=== PATIENT | female | born 1940 | race Caucasian/White ===

== ENCOUNTER → 2016-11-10 | Outpatient (CLI) | payer SELFPAY ==
[~2016-11-10] MED LIST: AMLODIPINE BESY10 MG PO; ASPIRIN PO; CALCIUM + D 6001 TA1 PO; CERTAGEN PO; CITRACAL200 MG PO; COZAAR100 MG; FISH OIL PO; HYDROCHLOROT PO; LOPRESSOR PO; LOPRESSOR100 MG PO; LOTREL 10/20 MG1 CAP PO; OMEPRAZOLE20 M1 PO; PROTONIX PO; ZOCOR PO
== END | disposition home or self-care (01) ==
LOC: CNIV 08:53
DX: M25.472 Effusion, left ankle (principal); M79.89 Other specified soft tissue disorders; L03.112 Cellulitis of left axilla

== ENCOUNTER → 2017-03-29 | Outpatient (CLI) | payer OTHER, MEDICARE ==
--- NOTE | ~2017-03-29 | MY29 ---
[facility] A Service [facility] RADIOLOGY TEXT RESULTS PATIENT: AMAYA ORDOÑEZ LOCATION: [facility] : 38 UNIT #: [id number] AGE: [address]: BRENT IBRAHIM APRN SEX: F ORDER DR: [id number] [facility] [address] [place], [place] [address] [id number] O MR#: [id number] #: [id number] NAME: AMAYA ORDOÑEZ : 1940 SEX: F STUDY DATE/TIME: 03/29/2017 9:45 UNIT: [facility] ROOM: STUDY DESCRIPTION: MY SHILPA SCREENING W/ CAD BILAT Attending Physician: Brent Ibrahim Aprn Ordering Physician: Brent Ibrahim Aprn Primary Care Physician: Brent Ibrahim Aprn MEDICAL IMAGING REPORT This report is preliminary unless electronic signature is present EXAM Bilateral digital screening mammogram with CAD, 03/29/2017 HISTORY Family history breast cancer in a sister age 35. No personal of breast cancer. COMPARISON Bilateral screening mammogram 03/23/2016 and 05/09/2014. FINDINGS CC and MLO views were obtained of each breast utilizing digital technique and reviewed with a FDA-approved CAD device. Scattered fibroglandular densities are present bilaterally. The rugal pattern appears stable. No new or developing nodule is seen. No architectural distortion. Benign scattered calcifications. IMPRESSION BIRADS category 2. Benign findings. Routine screening mammogram recommended in 1 year. BIRADS: 2 Benign Finding. Patients over the age of 40 are entered into a reminder system with target due date for the next mammogram. A result letter will also be sent to the patient. Dictated by... Samantha Machado M.D. [facility] A Service [facility] RADIOLOGY TEXT RESULTS PATIENT: AMAYA ORDOÑEZ LOCATION: [facility] : 38 UNIT #: [id number] AGE: [address]: BRENT IBRAHIM APRN SEX: F ORDER DR: THIS IS AN ELECTRONICALLY VERIFIED REPORT Samantha Machado M.D. at 04/01/2017 8:34 AM CYRIL/drew TD: 03/29/2017 21:00 JOB #: [id number] MEDICAL IMAGING REPORT Page 1 of 1 COPY
== END | disposition home or self-care (01) ==
LOC: CWCC 09:36
DX: Z12.31 Encounter for screening mammogram for malignant neoplasm of breast (principal); Z80.3 Family history of malignant neoplasm of breast
CPT/HCPCS: G0202